=== PATIENT | male | born 1975 | race African-American/Black ===

== ENCOUNTER 2018-10-03 08:35 | Emergency (ER) | payer MEDICAID ==
[~2018-10-03] VITALS: Ht 188 cm; Wt 130.0 kg
[~2018-10-03 08:35] MED LIST: ALBU05 IH; HTN PO
[2018-10-03] MEDS ORDERED: IBUPROFEN 800MG TABLET PO ONE (10:00)
[2018-10-03 11:52] VITALS: BP 172/98
== END 2018-10-03 11:55 | disposition home or self-care (01) ==
LOC: ER 08:35
DX: S60.221A Contusion of right hand, initial encounter (principal); I10 Essential (primary) hypertension; J45.909 Unspecified asthma, uncomplicated; Z88.0 Allergy status to penicillin; Z98.890 Other specified postprocedural states; V43.52XA Car driver injured in collision with other type car in traffic accident, initial encounter; Y93.89 Activity, other specified; Y92.488 Other paved roadways as the place of occurrence of the external cause
CPT/HCPCS: 73130; 99283